=== PATIENT | female | born 1975 | race Caucasian/White ===

== ENCOUNTER 2017-02-20 16:09 | Emergency (ER) | payer MEDICAID ==
[2017-02-20 16:36] VITALS: BP 146/90; PULSE 83; RESP 16; TEMP 98.4; O2SAT 96
[2017-02-20] MEDS ORDERED: Oxycodone/Acetaminophen 5/325 mg Tab PO STA (17:12)
[2017-02-20] MEDS ORDERED: Lidocaine/Epi 1% 1:100000 20 ML IJ ONE (17:41)
--- NOTE | 2017-02-20 19:29 | ED PDOC ---
Arrival/HPI - General Chief Complaint: Abnormal Skin Integrity Time Seen by Provider: 02/20/17 17:01 Historian: Patient - History of Present Illness Narrative History of Present Illness (Text): 41 y/o woman w/ no sig pmhx p/w 3-4 days of worsiening rubor/dolor/calor/and mild tumor to her rt labia minora denying ay fevers/uncharacteristic vaginal discharge. usoh x past 2 days. 02/20/17 19:35 Time/Duration: < week Symptom Onset: Gradual Symptom Course: Worsening Past Medical History - Provider Review Nursing Documentation Reviewed: Yes - Infectious Disease Hx of Infectious Diseases: None - Cardiac Hx Hypertension: Yes - Neurological Hx Migraine: Yes - Psychiatric Hx Substance Use: No Family/Social History - Physician Review Nursing Documentation Reviewed: Yes Family/Social History: No Known Family HX Smoking Status: Never Smoked Hx Alcohol Use: No Hx Substance Use: No Allergies/Home Meds Allergies/Adverse Reactions: Allergies No Known Allergies Allergy (Verified 02/20/17 16:46) Home Medications: Home Meds Medication Instructions Recorded Confirmed Propranolol [Inderal LA] 80 mg PO DAILY 02/20/17 02/20/17 Review of Systems - Physician Review All systems were reviewed & negative as marked: Yes - Review of Systems Constitutional: Normal Eyes: Normal ENT: Normal Respiratory: Normal Cardiovascular: Normal Gastrointestinal: Normal Genitourinary Female: Other (aforementioned) Musculoskeletal: Normal Skin: Normal Neurological: Normal Endocrine: Normal Hemo/Lymphatic: Normal Psychiatric: Normal Physical Exam Vital Signs Reviewed: Yes Vital Signs Temp Pulse Resp BP Pulse Ox 02/20/17 16:35 98.4 F 83 16 146/90 96 Temperature: Afebrile Blood Pressure: Normal Pulse: Regular Respiratory Rate: Normal Appearance: Positive for: Well-Appearing, Non-Toxic, Comfortable Pain Distress: None Mental Status: Positive for: Alert and Oriented X 3 - Systems Exam Head: Present: Atraumatic, Normocephalic Pupils: Present: PERRL Extroacular Muscles: Present: EOMI Conjunctiva: Present: Normal Mouth: Present: Moist Mucous Membranes Neck: Present: Normal Range of Motion Respiratory/Chest: Present: Clear to Auscultation, Good Air Exchange. No: Respiratory Distress, Accessory Muscle Use Cardiovascular: Present: Regular Rate and Rhythm, Normal S1, S2. No: Murmurs Abdomen: Present: Normal Bowel Sounds. No: Tenderness, Distention, Peritoneal Signs Genitourinary/Pelvic Exam: Present: Other (rt isded 6 oclock region of the introitus 2x3 cm area of induration, w/ aready extant area of pustulent drainage , no surrounding cellulitis, intravaginally there is minimal inward extension of the swelling/ttp, vaginal discharge whitish and unremarkable , accompanied by the female emt-b on staff for the region of the ER ) Back: Present: Normal Inspection Upper Extremity: Present: Normal Inspection. No: Cyanosis, Edema Lower Extremity: Present: Normal Inspection. No: Edema Neurological: Present: GCS=15, CN II-XII Intact, Speech Normal, Motor Func Grossly Intact, Normal Sensory Function, Normal Cerebellar Funct, Norm Deep Tendon Reflexes Skin: Present: Warm, Dry, Normal Color. No: Rashes Psychiatric: Present: Alert, Oriented x 3, Normal Insight, Normal Concentration Medical Decision Making ED Course and Treatment: 41 y/o woman w/ no prior hx of immunocompromise nor constituional sx p/w small rt sided abrthilin's cyst already draiiig . area was infiltrated w/ 1% lido w/ epi for analgesia, and then subsequently re of dominant fluctuance w/ already extant punctate are of draianeg was further punctured with 18 G needle under vacuum aspiratio w/ miimal pustulent aspirate yileded (< 1mL ) . pt tolerate procedure well , uineventfully w/ minmal hemorhrage and no distress , ambulating well thereafter. dicahrge / return directios explained in greek. Pt verbalised undrstanding. will be sent home on trial of trial of abx/ 2 day wound check . 02/20/17 19:47 - Medication Orders Current Medication Orders: Discontinued Medications Doxycycline Hyclate (Doryx) 100 mg PO STAT STA PRN Reason: Protocol Stop: 02/20/17 17:44 Last Admin: 02/20/17 18:01 Dose: 100 mg Lidocaine/Epinephrine (Lidocaine/Epi 1% 1:209257 20 Ml) 5 ml IJ ONCE ONE Stop: 02/20/17 17:42 Last Admin: 02/20/17 18:45 Dose: 5 ml Metronidazole (Flagyl) 500 mg PO STAT STA PRN Reason: Protocol Stop: 02/20/17 17:45 Last Admin: 02/20/17 18:01 Dose: 500 mg Oxycodone/Acetaminophen (Percocet 5/325 Mg Tab) 1 tab PO STAT STA Stop: 02/20/17 17:13 Last Admin: 02/20/17 17:41 Dose: 1 tab MAR Pain Assessment Document 02/20/17 17:41 [facility] (Rec: 02/20/17 17:47 [id number]) Pain Reassessment Is this a pain reassessment? No Sleep Is patient sleeping during reassessment? No Presence of Pain Presence of Pain Yes Pain Scale Used Pain Scale Used Numeric Description Description Constant Intensity of Pain at present 6 Pain Behavior Guarding Disposition/Present on Arrival - Present on Arrival Any Indicators Present on Arrival: No History of DVT/PE: No History of Uncontrolled Diabetes: No Urinary Catheter: No History of Decub. Ulcer: No History Surgical Site Infection Following: None - Disposition Have Diagnosis and Disposition been Completed?: Yes Diagnosis: Bartholin's cyst Disposition: HOME/ ROUTINE Disposition Time: 19:25 Patient Plan: Discharge Condition: IMPROVED Discharge Instructions (ExitCare): Bartholin Cyst (ED), Incision and Drainage ( ED) Print Language: MONGOLIAN Additional Instructions: Tu es sufrendo de jen temprano farzaneh de jen derecha ladao bartholin's absceso . Tu abceso recibo drianage y incision puncada para facilitar mas drainage. Kiley la antibiticas arreguin prescribado, y regrese si tu experienza 1) fiebre con temperatura mas que 100.4 deg F 2) dolor sin control 3) hinchazon empeorando/ rojando aumentando Regrese en dos he par chequear el progreso de duran abceso . Kiley la antiobiticas ta prescribado doxycycline dos veces en el [place] , el flagyl (metronidazle jak veces cada [place]) . No karlee alcohol mienras tomando esta antiobiticas. Prescriptions: Doxycycline Monohydrate 100 mg PO BID #20 tablet Ibuprofen [Motrin Tab] 600 mg PO Q6 PRN #30 tab PRN Reason: Pain, Moderate (4-7) Metronidazole [Flagyl] 500 mg PO TID #21 tablet Referrals: Grigoriu,Zuri, MD [Primary Care Provider] - Follow up with primary Forms: [employer] (Libyan), WORK NOTE
== END 2017-02-20 19:32 | disposition home or self-care (01) ==
LOC: ED 16:09
DX: N75.0 Cyst of Bartholin's gland (principal)